=== PATIENT | male | born 1945 | race Caucasian/White ===

== ENCOUNTER 2016-06-04 06:05 | Inpatient (IN) | payer MEDICARE, OTHER ==
--- NOTE | 2016-06-04 06:38 | ER Document Report ---
ED General - General Stated Complaint: DIFFICULTY BREATHING Mode of Arrival: Medic Information source: Patient Notes: 71-year-old male history of hypertension smoker for greater than 50 years presents with complaints of weakness falls shortness breath. Patient notes immediately that his 2 months ago that he is depressed, over the past 3 weeks has not been eating TRAVEL OUTSIDE OF THE [place] IN LAST 30 DAYS: No - HPI Onset: Other Onset/Duration: Persistent Quality of pain: No pain Severity: Moderate Pain Level: Denies Associated symptoms: Shortness of breath, Weakness Exacerbated by: Movement, Walking Relieved by: Denies Similar symptoms previously: No Recently seen / treated by doctor: No - Related Data Allergies/Adverse Reactions: No Known Allergies Allergy (Unverified 06/22/11 10:53) Home Medications: Current Home Medications Amlodipine Besylate [Amlodipine Besylate] 10 mg PO DAILY 06/04/16 [History] Telmisartan/Hydrochlorothiazid [Telmisartan-Hctz 80-25 mg Tab] 1 tab PO DAILY [History] Past Medical History - Social History Smoking Status: Current Every Day Smoker Cigarette use (# per day): Yes Chew tobacco use (# tins/day): No Smoking Education Provided: Yes - Patient counselled regarding cessation for 4 minutes Family History: Reviewed & Not Pertinent - Past Medical History Cardiac Medical History: Reports: Hx Hypertension Denies: Hx Coronary Artery Disease Pulmonary Medical History: Reports: Hx Pneumonia Past Surgical History: Denies: Hx Open Heart Surgery Review of Systems - Review of Systems Notes: REVIEW OF SYSTEMS: CONSTITUTIONAL : Denies fever, chills, or sweats. Denies recent illness. EENT: Denies eye, ear, throat, or mouth pain or symptoms. Denies nasal or sinus congestion or discharge. Denies throat, tongue, or mouth swelling or difficulty swallowing. CARDIOVASCULAR: Denies chest pain. Denies palpitations or racing or irregular heart beat. Denies ankle edema. RESPIRATORY: Shortness breath GASTROINTESTINAL: Denies abdominal pain or distention. Denies nausea, vomiting , or diarrhea. Denies blood in vomitus, stools, or per rectum. Denies black, tarry stools. Denies constipation. GENITOURINARY: Denies difficulty urinating, painful urination, burning, frequency, blood in urine, or discharge. MUSCULOSKELETAL: Denies back or neck pain or stiffness. Denies joint pain or swelling. SKIN: Denies rash, lesions or sores. HEMATOLOGIC : Denies easy bruising or bleeding. LYMPHATIC: Denies swollen, enlarged glands. NEUROLOGICAL: Weakness PSYCHIATRIC: Depression ALL OTHER SYSTEMS REVIEWED AND NEGATIVE. Dictation was performed using [employer] voice recognition software PHYSICAL EXAMINATION: GENERAL: Well-appearing, well-nourished and in no acute distress. HEAD: Atraumatic, normocephalic. EYES: Pupils equal round and reactive to light, extraocular movements intact, sclera anicteric, conjunctiva are normal. ENT: Nares patent, oropharynx clear without exudates. Moist mucous membranes. NECK: Normal range of motion, supple without lymphadenopathy LUNGS: Coarse rhonchi inspiratory and expiratory HEART: Regular rate and rhythm without murmurs ABDOMEN: Soft, nontender, nondistended abdomen. No guarding, no rebound. No masses appreciated. Musculoskeletal: Normal range of motion, no pitting or edema. No cyanosis. NEUROLOGICAL: Cranial nerves grossly intact. Normal speech, normal gait. Normal sensory, motor exams PSYCH: Normal mood, normal affect. SKIN: Warm, Dry, normal turgor, no rashes or lesions noted. Course - Re-evaluation Re-evalutation: 06/04/16 06:38 71-year-old male who presents depressed with complaints of generalized weakness secondary to decreased intake. Lab work pending 06/04/16 08:02 Patient's sodium levels noted to be 107, this would be consistent with his poor oral intake and frequent falls. Given that he is symptomatic hyponatremia I will admit the patient, I did call pharmacy for 3% hypertonic solution and will admit - Laboratory Result Diagrams: 06/04/16 07:00 06/04/16 07:00 Laboratory results interpreted by me: 06/04/16 06/04/16 07:00 07:00 RBC 4.18 L MCHC 36.5 H Sodium 107.7 L* Potassium 3.0 L* Chloride 66 L Total Bilirubin 1.9 H Direct Bilirubin 0.6 H - Diagnostic Test Radiology reviewed: Image reviewed, Reports reviewed Critical Care Note - Critical Care Note Total time excluding time spent on procedures (mins): 34 Comments: 34 minutes of critical care time spent in direct contact evaluating and reevaluating the patient, treating symptoms, reviewing labs and studies and speaking with family and consultants excluding any procedures Discharge - Discharge Clinical Impression: Hyponatremia, Weakness Fall Qualifiers: Encounter type: initial encounter Qualified Code(s): W19.XXXA - Unspecified fall, initial encounter Depression Qualifiers: Depression Type: major depressive disorder Major depression recurrence: single episode Active/Remission status: currently active Major depression episode severity: severe Psychotic features: without psychotic features Qualified Code(s ): F32.2 - Major depressive disorder, single episode, severe without psychotic features Condition: Critical Disposition: ADMITTED INPATIENT Admitting Provider: Hospitalist Unit Admitted: Telemetry
[2016-06-04 07:20] LABS: ABSOLUTE BASOPHILS # (AUTO) 0.1 10^3/uL (0.0-0.2); ABSOLUTE EOSINOPHILS # (AUTO) 0.1 10^3/uL (0.0-0.6); ABSOLUTE LYMPHOCYTES (AUTO) 1.9 10^3/uL (0.5-4.7); ABSOLUTE MONOCYTES (AUTO) 0.4 10^3/uL (0.1-1.4); ABSOLUTE NEUT (AUTO) 3.6 10^3/uL (1.7-8.2); BASOPHILS % (AUTO) 1.3 % (0-2); EOSINOPHILS % (AUTO) 0.9 % (0-6); HEMATOCRIT 37.9 % (37.9-51.0); HEMOGLOBIN 13.9 g/dL (13.5-17.0); HGB HCT DIFFERENCE 3.8; LYMPHOCYTES % (AUTO) 30.7 % (13-45); MEAN CORPUSCULAR HEMOGLOBIN 33.2 pg (27.0-33.4); MEAN CORPUSCULAR HGB CONC 36.5 g/dL (32.0-36.0); MEAN CORPUSCULAR VOLUME 91 fl (80-97); MONOCYTES % (AUTO) 7.1 % (3-13); RED BLOOD COUNT 4.18 10^6/uL (4.35-5.55); RED CELL DISTRIBUTION WIDTH 13.2 % (11.5-14.0); WHITE BLOOD COUNT 6.1 10^3/uL (4.0-10.5)
[2016-06-04 07:38] LABS: ALANINE AMINOTRANSFERASE 30 U/L (21-72); ALBUMIN 4.3 g/dL (3.5-5.0); ALKALINE PHOSPHATASE 82 U/L (38-126); ASPARTATE AMINO TRANSFERASE 28 U/L (17-59); BILIRUBIN,DIRECT 0.6 mg/dL (0.0-0.4); BILIRUBIN,TOTAL 1.9 mg/dL (0.2-1.3); BLOOD UREA NITROGEN 14 mg/dL (7-20); CALCIUM 9.1 mg/dL (8.4-10.2); CARBON DIOXIDE 29 mmol/L (22-30); CHLORIDE 66 mmol/L (98-107); CREATINE KINASE 58 U/L (55-170); CREATININE RESULT 0.54 mg/dL (0.52-1.25); GLUCOSE 101 mg/dL (75-110); TOTAL PROTEIN 6.6 g/dL (6.3-8.2)
[2016-06-04 07:42] LABS: ANION GAP 13 (5-19)
[2016-06-04 07:47] LABS: SODIUM 107.7 mmol/L (137-145)
[2016-06-04 07:49] LABS: CREATINE KINASE MB 0.57 ng/mL (<4.55)
[2016-06-04 07:54] LABS: TROPONIN I < 0.012 ng/mL
[2016-06-04] MEDS ORDERED: SODIUM CHLORIDE 3% 500 ML IV ONE ×2 (08:30→08:33)
[2016-06-04] MEDS ORDERED: ENOXAPARIN SODIUM INJ 40 MG/0.4 ML DISP.SYRIN SUBCUT ONE (09:00)
--- NOTE | 2016-06-04 10:01 | PSYCHOLOGICAL NOTE ---
Psych Note - Psych Note Psych Note: Patient is a 71 year old male who presented this morning to [facility] with complaints of syncopal episodes, and generally not feeling well possibly due to poor oral intake. Patient was noted almost immediately upon arrival to report he was depressed due to his 's passing a few months ago. Patient was referred for psychiatric consultation; however when I attempted to meet with the patient, he states he would prefer to wait to talk until he is moved upstairs. Advised patient that this clinician would see him within the next 24 hours. Patient is reportedly being admitted for hyponatremia. Will track.
[2016-06-04] MEDS: POTASSI CL 20 MEQ/50 ML RIDER 20 MEQ/50 ML RTUPB IV SCH ×2 (10:47→12:33)
[2016-06-04] MEDS: AMLODIPINE BESYLATE 10 MG TABLET PO SCH (12:17)
[2016-06-04] MEDS: ASPIRIN 81 MG TABLET, CHEWABLE PO SCH (12:17)
[2016-06-04 13:53] LABS: APPEARANCE,URINE CLEAR; BILIRUBIN,URINE NEGATIVE (NEGATIVE); GLUCOSE, URINE NEGATIVE (NEGATIVE); KETONES,URINE NEGATIVE (NEGATIVE); LEUKOCYTE ESTERASE,URINE NEGATIVE (NEGATIVE); NITRITE,URINE NEGATIVE (NEGATIVE); PROTEIN,URINE NEGATIVE (NEGATIVE); URINE SPECIFIC GRAVITY 1.009; UROBILINOGEN,URINE NEGATIVE mg/dL (<2.0)
[2016-06-04 15:12] LABS: ANION GAP 11 (5-19); BLOOD UREA NITROGEN 16 mg/dL (7-20); CALCIUM 8.8 mg/dL (8.4-10.2); CARBON DIOXIDE 28 mmol/L (22-30); CHLORIDE 74 mmol/L (98-107); CREATININE RESULT 0.62 mg/dL (0.52-1.25); GLUCOSE 214 mg/dL (75-110); POTASSIUM 3.3 mmol/L (3.6-5.0)
[2016-06-04 15:24] LABS: SODIUM 113.4 mmol/L (137-145)
--- NOTE | 2016-06-04 15:58 | EKG REPORT ---
SEVERITY:- ABNORMAL ECG - SINUS RHYTHM RBBB AND LPFB : Confirmed by: Mary Lopez 04-Jun-2016 15:57:17
--- NOTE | 2016-06-04 17:23 | PDOC H&P ---
History of Present Illness Admission Date/PCP: 06/04/16 08:22 Patient complains of: Hyponatremia with sodium 107. History of Present Illness: STEFF CHOPRA is a 71 year old male who became very weak and is now falling. This has been gradually progressive since his about 2 months ago and he has had very poor oral intake. He feels depressed. Psychiatry service has also been consulted. Evaluation in the emergency department has shown a sodium of 107 and potassium of 3.0. 3% hypertonic saline has been ordered. The patient will be admitted for further management. Past Medical History Cardiac Medical History: Reports: Hypertension Denies: Coronary Artery Disease Pulmonary Medical History: Reports: Pneumonia Hematology: Denies: Anemia, Sickle Cell Disease Social History Smoking Status: Current Every Day Smoker Cigarettes Packs Per Day: 1 Family History Family History: Reviewed & Not Pertinent Parental Family History Reviewed: No Children Family History Reviewed: No Sibling(s) Family History Reviewed.: No Medication/Allergy Home Medications: Aspirin [Aspirin 81 mg Chewable Tablet] 81 mg PO DAILY 06/28/11 Amlodipine Besylate [Amlodipine Besylate] 10 mg PO DAILY 06/04/16 Telmisartan/Hydrochlorothiazid [Telmisartan-Hctz 80-25 mg Tab] 1 tab PO DAILY Allergies/Adverse Reactions: No Known Allergies Allergy (Unverified 06/22/11 10:53) Physical Exam Vital Signs: Temp Pulse Resp BP Pulse Ox 98.1 F 21 H 113/50 L 98 06/04/16 06:06 06/04/16 16:09 06/04/16 16:09 06/04/16 16:09 General appearance: PRESENT: no acute distress, disheveled, other - weak Head exam: PRESENT: atraumatic, normocephalic Eye exam: PRESENT: conjunctiva pink, EOMI, PERRLA. ABSENT: scleral icterus Ear exam: PRESENT: normal external ear exam Mouth exam: PRESENT: dry mucosa Neck exam: ABSENT: carotid bruit, JVD, lymphadenopathy, thyromegaly Respiratory exam: PRESENT: clear to auscultation kirill. ABSENT: rales, rhonchi, wheezes Cardiovascular exam: PRESENT: RRR. ABSENT: diastolic murmur, rubs, systolic murmur Pulses: PRESENT: other - poor peripheral pulses, no cyanosis Vascular exam: PRESENT: normal capillary refill GI/Abdominal exam: PRESENT: normal bowel sounds, soft. ABSENT: distended, guarding, mass, organolmegaly, rebound, tenderness Rectal exam: PRESENT: deferred Extremities exam: PRESENT: full ROM. ABSENT: calf tenderness, clubbing, pedal edema Neurological exam: PRESENT: alert, awake, oriented to person, oriented to place , oriented to time, oriented to situation, CN II-XII grossly intact, other - generalized weakness. ABSENT: motor sensory deficit Psychiatric exam: PRESENT: depressed. ABSENT: homicidal ideation, suicidal ideation Skin exam: PRESENT: dry, intact, warm. ABSENT: cyanosis, rash Results Laboratory Results: 06/04/16 14:20 06/04/16 06/04/16 13:15 14:20 Sodium 113.4 L* Potassium 3.3 L Chloride 74 L Carbon Dioxide 28 Anion Gap 11 BUN 16 Creatinine 0.62 Est GFR ( Amer) > 60 Est GFR (Non-Af Amer) > 60 Glucose 214 H Calcium 8.8 Urine Color YELLOW Urine Appearance CLEAR Urine pH 6.0 Ur Specific [place] 1.009 Urine Protein NEGATIVE Urine Glucose (UA) NEGATIVE Urine Ketones NEGATIVE Urine Blood NEGATIVE Urine Nitrite NEGATIVE Ur Leukocyte Esterase NEGATIVE Urine WBC (Auto) 1 Urine RBC (Auto) 1 Impressions: Chest X-Ray 06/04/16 06:08 IMPRESSION: NO SIGNIFICANT RADIOGRAPHIC FINDING IN THE CHEST. Assessment & Plan - Diagnosis (1) Hyponatremia Is this a current diagnosis for this admission?: YesPlan: The hyponatremia is severe. Initial sodium 107. He has been started on hypertonic saline. We will monitor closely and adjust treatment as needed. (2) Weakness Is this a current diagnosis for this admission?: YesPlan: This is probably multifactorial, mostly related to his extremely low sodium count. Other factors likely include malnutrition deconditioning and depression. (3) Falls Qualifiers: Encounter type: initial encounter Qualified Code(s): W19.XXXA - Unspecified fall, initial encounter Is this a current diagnosis for this admission?: YesPlan: This is likely related to the generalized weakness and hyponatremia. At some point we'll obtain a physical therapy evaluation. (4) Depressed Qualifiers: Depression Type: major depressive disorder Major depression recurrence : single episode Active/Remission status: currently active Major depression episode severity: severe Psychotic features: without psychotic features Qualified Code(s): F32.2 - Major depressive disorder, single episode, severe without psychotic features Is this a current diagnosis for this admission?: YesPlan: The patient readily admits to being depressed since his 's 2 months ago. The psychiatry service has been consulted. (5) HTN (hypertension) Qualifiers: Hypertension type: essential hypertension Qualified Code(s): I10 - Essential (primary) hypertension Is this a current diagnosis for this admission?: YesPlan: Will monitor and treat as needed. His home medications are on record. - Time Time Spent: 50 to 70 Minutes
[2016-06-04 20:04] LABS: ANION GAP 13 (5-19); BLOOD UREA NITROGEN 19 mg/dL (7-20); CALCIUM 9.2 mg/dL (8.4-10.2); CARBON DIOXIDE 27 mmol/L (22-30); CHLORIDE 75 mmol/L (98-107); GLUCOSE 205 mg/dL (75-110); POTASSIUM 3.4 mmol/L (3.6-5.0)
[2016-06-04 20:09] LABS: SODIUM 114.9 mmol/L (137-145)
[2016-06-04 20:54] LABS: ADD ON TESTING BLD IN LAB ACKNOWLEDGE
[2016-06-04 21:12] LABS: MAGNESIUM 1.7 mg/dL (1.6-2.3)
[2016-06-04] MEDS ORDERED: POTASSIUM CHLORIDE 20 MEQ/15 ML UDCUP PO ONE (22:00)
[2016-06-04 23:17] LABS: ANION GAP 9 (5-19); BLOOD UREA NITROGEN 17 mg/dL (7-20); CALCIUM 9.5 mg/dL (8.4-10.2); CARBON DIOXIDE 32 mmol/L (22-30); CHLORIDE 76 mmol/L (98-107); CREATININE RESULT 0.63 mg/dL (0.52-1.25); GLUCOSE 160 mg/dL (75-110); POTASSIUM 3.2 mmol/L (3.6-5.0)
[2016-06-04 23:27] LABS: SODIUM 116.5 mmol/L (137-145)
[2016-06-05] MEDS ORDERED: WATER IV SCH ×2 (00:10→02:30)
[2016-06-05] MEDS ORDERED: DEXTROSE 5% IV SCH ×2 (00:10→02:30)
[2016-06-05] MEDS ORDERED: POTASSIUM CHLORIDE 20 MEQ/15 ML UDCUP PO ONE ×2 (00:15→02:30)
[2016-06-05] MEDS ORDERED: ENOXAPARIN SODIUM INJ 40 MG/0.4 ML DISP.SYRIN SUBCUT ONE (00:30)
[2016-06-05] MEDS ORDERED: DESMOPRESSIN ACETATE INJ 4 MCG/1 ML AMPULE ONE (00:45)
[2016-06-05 01:50] LABS: ANION GAP 10 (5-19); BLOOD UREA NITROGEN 16 mg/dL (7-20); CALCIUM 8.9 mg/dL (8.4-10.2); CARBON DIOXIDE 28 mmol/L (22-30); CHLORIDE 80 mmol/L (98-107); CREATININE RESULT 0.56 mg/dL (0.52-1.25); GLUCOSE 219 mg/dL (75-110); POTASSIUM 3.8 mmol/L (3.6-5.0)
[2016-06-05 02:09] LABS: SODIUM 118.3 mmol/L (137-145)
[2016-06-05] MEDS ORDERED: DESMOPRESSIN ACETATE INJ 4 MCG/1 ML AMPULE SUBCUT ONE (02:30)
[2016-06-05] MEDS ORDERED: PHARMACY COMMUNICATION ORDER MC NR (02:30)
[2016-06-05 05:22] LABS: ABSOLUTE LYMPHOCYTES (AUTO) 1.1 10^3/uL (0.5-4.7); ABSOLUTE MONOCYTES (AUTO) 0.9 10^3/uL (0.1-1.4); BASOPHILS % (AUTO) 0.4 % (0-2); EOSINOPHILS % (AUTO) 0.1 % (0-6); HEMATOCRIT 35.8 % (37.9-51.0); HGB HCT DIFFERENCE 3.2; LYMPHOCYTES % (AUTO) 11.4 % (13-45); MEAN CORPUSCULAR HEMOGLOBIN 33.3 pg (27.0-33.4); MEAN CORPUSCULAR HGB CONC 36.4 g/dL (32.0-36.0); MEAN CORPUSCULAR VOLUME 92 fl (80-97); MONOCYTES % (AUTO) 9.2 % (3-13); RED BLOOD COUNT 3.91 10^6/uL (4.35-5.55); RED CELL DISTRIBUTION WIDTH 13.4 % (11.5-14.0); SEGMENTED NEUTROPHILS % (AUTO) 78.9 % (42-78); WHITE BLOOD COUNT 10.1 10^3/uL (4.0-10.5)
[2016-06-05 05:27] LABS: ANION GAP 7 (5-19); BLOOD UREA NITROGEN 15 mg/dL (7-20); CALCIUM 9.4 mg/dL (8.4-10.2); CARBON DIOXIDE 30 mmol/L (22-30); CHLORIDE 81 mmol/L (98-107); GLUCOSE 152 mg/dL (75-110)
[2016-06-05 05:42] LABS: SODIUM 117.5 mmol/L (137-145)
[2016-06-05] MEDS ORDERED: WATER IV PRN (05:49)
[2016-06-05] MEDS ORDERED: DEXTROSE 5% IV PRN (05:49)
[2016-06-05] MEDS ORDERED: ENOXAPARIN SODIUM INJ 40 MG/0.4 ML DISP.SYRIN SUBCUT SCH ×2 (08:00→22:00)
[2016-06-05] MEDS ORDERED: DESMOPRESSIN ACETATE INJ 4 MCG/1 ML AMPULE SUBCUT SCH (08:30)
[2016-06-05 09:01] LABS: BLOOD UREA NITROGEN 13 mg/dL (7-20); CALCIUM 8.9 mg/dL (8.4-10.2); CARBON DIOXIDE 32 mmol/L (22-30); CHLORIDE 78 mmol/L (98-107); CREATININE RESULT 0.51 mg/dL (0.52-1.25); GLUCOSE 127 mg/dL (75-110); POTASSIUM 3.5 mmol/L (3.6-5.0)
[2016-06-05 09:04] LABS: ANION GAP 8 (5-19)
[2016-06-05 09:23] LABS: SODIUM 117.7 mmol/L (137-145)
[2016-06-05] MEDS: ASPIRIN 81 MG TABLET, CHEWABLE PO SCH (09:30)
[2016-06-05] MEDS: AMLODIPINE BESYLATE 10 MG TABLET PO SCH (09:31)
--- NOTE | 2016-06-05 10:56 | PDOC PROGRESS REPORT ---
Subjective Progress Note for:: 06/05/16 Subjective:: Patient denies any complaints. Physical Exam Vital Signs: Temp Pulse Resp BP Pulse Ox 97.4 F 64 19 121/56 L 94 06/05/16 07:33 06/05/16 07:33 06/05/16 07:33 06/05/16 07:33 06/05/16 07:33 Intake & Output 06/04/16 06/05/16 06/06/16 06:59 06:59 06:59 Intake Total 1622 Balance 1622 Weight 63.4 kg General appearance: PRESENT: no acute distress Eye exam: PRESENT: conjunctiva pink. ABSENT: scleral icterus Mouth exam: PRESENT: moist, tongue midline Neck exam: ABSENT: JVD Respiratory exam: PRESENT: clear to auscultation kirill. ABSENT: rales, rhonchi, wheezes Cardiovascular exam: PRESENT: RRR. ABSENT: diastolic murmur, rubs, systolic murmur GI/Abdominal exam: PRESENT: normal bowel sounds, soft. ABSENT: distended, guarding, mass, organolmegaly, rebound, tenderness Extremities exam: ABSENT: calf tenderness, clubbing, pedal edema Neurological exam: PRESENT: alert, awake, oriented to person, oriented to place , oriented to time, oriented to situation, CN II-XII grossly intact. ABSENT: motor sensory deficit Psychiatric exam: PRESENT: flat affect Skin exam: PRESENT: dry, intact, warm. ABSENT: cyanosis, rash Results Laboratory Results: 06/05/16 04:26 06/05/16 08:36 06/04/16 06/04/16 06/04/16 13:15 14:20 19:23 WBC RBC Hgb Hct MCV MCH MCHC RDW Plt Count Seg Neutrophils % Lymphocytes % Monocytes % Eosinophils % Basophils % Absolute Neutrophils Absolute Lymphocytes Absolute Monocytes Absolute Eosinophils Absolute Basophils Sodium 113.4 L* 114.9 L* Potassium 3.3 L 3.4 L Chloride 74 L 75 L Carbon Dioxide 28 27 Anion Gap 11 13 BUN 16 19 Creatinine 0.62 0.60 Est GFR ( Amer) > 60 > 60 Est GFR (Non-Af Amer) > 60 > 60 Glucose 214 H 205 H Calcium 8.8 9.2 Magnesium Urine Color YELLOW Urine Appearance CLEAR Urine pH 6.0 Ur Specific [place] 1.009 Urine Protein NEGATIVE Urine Glucose (UA) NEGATIVE Urine Ketones NEGATIVE Urine Blood NEGATIVE Urine Nitrite NEGATIVE Ur Leukocyte Esterase NEGATIVE Urine WBC (Auto) 1 Urine RBC (Auto) 1 06/04/16 06/04/16 06/05/16 19:23 22:20 01:20 WBC RBC Hgb Hct MCV MCH MCHC RDW Plt Count Seg Neutrophils % Lymphocytes % Monocytes % Eosinophils % Basophils % Absolute Neutrophils Absolute Lymphocytes Absolute Monocytes Absolute Eosinophils Absolute Basophils Sodium 116.5 L* 118.3 L* Potassium 3.2 L 3.8 Chloride 76 L 80 L Carbon Dioxide 32 H 28 Anion Gap 9 10 BUN 17 16 Creatinine 0.63 0.56 Est GFR ( Amer) > 60 > 60 Est GFR (Non-Af Amer) > 60 > 60 Glucose 160 H 219 H Calcium 9.5 8.9 Magnesium 1.7 Urine Color Urine Appearance Urine pH Ur Specific [place] Urine Protein Urine Glucose (UA) Urine Ketones Urine Blood Urine Nitrite Ur Leukocyte Esterase Urine WBC (Auto) Urine RBC (Auto) 06/05/16 06/05/16 06/05/16 04:26 04:26 08:36 WBC 10.1 RBC 3.91 L Hgb 13.0 L Hct 35.8 L MCV 92 MCH 33.3 MCHC 36.4 H RDW 13.4 Plt Count 157 Seg Neutrophils % 78.9 H Lymphocytes % 11.4 L Monocytes % 9.2 Eosinophils % 0.1 Basophils % 0.4 Absolute Neutrophils 8.0 Absolute Lymphocytes 1.1 Absolute Monocytes 0.9 Absolute Eosinophils 0.0 Absolute Basophils 0.0 Sodium 117.5 L* 117.7 L* Potassium 4.0 3.5 L Chloride 81 L 78 L Carbon Dioxide 30 32 H Anion Gap 7 8 BUN 15 13 Creatinine 0.50 L 0.51 L Est GFR ( Amer) > 60 > 60 Est GFR (Non-Af Amer) > 60 > 60 Glucose 152 H 127 H Calcium 9.4 8.9 Magnesium Urine Color Urine Appearance Urine pH Ur Specific [place] Urine Protein Urine Glucose (UA) Urine Ketones Urine Blood Urine Nitrite Ur Leukocyte Esterase Urine WBC (Auto) Urine RBC (Auto) Impressions: Chest X-Ray 06/04/16 06:08 IMPRESSION: NO SIGNIFICANT RADIOGRAPHIC FINDING IN THE CHEST. Assessment & Plan - Diagnosis (1) Hyponatremia Is this a current diagnosis for this admission?: YesPlan: The patient's hyponatremia has improved. We will DC the DDAVP and give IV fluids as he does appear to be somewhat volume depleted still. (2) Depressed Qualifiers: Depression Type: major depressive disorder Major depression recurrence : single episode Active/Remission status: currently active Major depression episode severity: severe Psychotic features: without psychotic features Qualified Code(s): F32.2 - Major depressive disorder, single episode, severe without psychotic features Is this a current diagnosis for this admission?: YesPlan: Patient is to see psychiatry. He is depressed because his 2 months ago. We will start him on Celexa. (3) HTN (hypertension) Qualifiers: Hypertension type: essential hypertension Qualified Code(s): I10 - Essential (primary) hypertension Is this a current diagnosis for this admission?: YesPlan: Blood pressure is controlled with Norvasc. - Time Time Spent with patient: 25-34 minutes - Inpatient Certification Medical Necessity: Need For IV Fluids
[2016-06-05] MEDS: ALBUTEROL SULFATE 0.083% NEB 2.5 MG/3 ML AMPUL NEB PRN (14:11)
--- NOTE | 2016-06-05 18:08 | PSYCHOLOGICAL NOTE ---
Psych Note - Psych Note Psych Note: Attempted again to consult patient who is a 71-year-old male admitted to [facility]. Patient was seen in the emergency room yesterday after the emergency room physician was concerned for possible depression when the patient' s immediately mentioned the of his 2 months ago. Patient stated yesterday he preferred to wait to talk until he got settled into his room on the floor. Attempted to speak with patient again today; however, he was not willing to do so and stated he did not think it was necessary. Patient stated he is feeling better. Advised patient that he is voluntary and not under an involuntary commitment and is able to refuse to consult. Please reconsult this department should the patient change his mind; however, 2 attempts were made unsuccessfully at evaluating this patient. I consulted with Dr. Burch in regards to the care and management of this patient. He for this consult.
[2016-06-05] MEDS: ENOXAPARIN SODIUM INJ 40 MG/0.4 ML DISP.SYRIN SUBCUT SCH (21:51)
[2016-06-05] MEDS: CITALOPRAM HYDROBROMIDE 20 MG TABLET PO SCH (21:52)
[2016-06-06] MEDS: NORMAL SALINE 1000 ML 1,000 ML IV PRN (01:27)
[2016-06-06] MEDS: ALBUTEROL SULFATE 0.083% NEB 2.5 MG/3 ML AMPUL NEB PRN (05:12)
[2016-06-06 05:13] LABS: ABSOLUTE MONOCYTES (AUTO) 0.6 10^3/uL (0.1-1.4); BASOPHILS % (AUTO) 0.3 % (0-2); EOSINOPHILS % (AUTO) 0.5 % (0-6); HEMATOCRIT 35.5 % (37.9-51.0); HEMOGLOBIN 12.7 g/dL (13.5-17.0); HGB HCT DIFFERENCE 2.6; LYMPHOCYTES % (AUTO) 23.1 % (13-45); MEAN CORPUSCULAR HEMOGLOBIN 33.2 pg (27.0-33.4); MEAN CORPUSCULAR HGB CONC 35.6 g/dL (32.0-36.0); MEAN CORPUSCULAR VOLUME 93 fl (80-97); MONOCYTES % (AUTO) 7.3 % (3-13); RED BLOOD COUNT 3.81 10^6/uL (4.35-5.55); RED CELL DISTRIBUTION WIDTH 13.3 % (11.5-14.0); SEGMENTED NEUTROPHILS % (AUTO) 68.8 % (42-78); WHITE BLOOD COUNT 8.7 10^3/uL (4.0-10.5)
[2016-06-06 05:40] LABS: ANION GAP 5 (5-19); BLOOD UREA NITROGEN 10 mg/dL (7-20); CALCIUM 8.6 mg/dL (8.4-10.2); CARBON DIOXIDE 28 mmol/L (22-30); CHLORIDE 87 mmol/L (98-107); CREATININE RESULT 0.49 mg/dL (0.52-1.25); GLUCOSE 91 mg/dL (75-110); POTASSIUM 3.8 mmol/L (3.6-5.0)
[2016-06-06 06:19] LABS: SODIUM 120.2 mmol/L (137-145)
[2016-06-06] MEDS: AMLODIPINE BESYLATE 10 MG TABLET PO SCH (09:36)
[2016-06-06] MEDS: ASPIRIN 81 MG TABLET, CHEWABLE PO SCH (09:37)
--- NOTE | 2016-06-06 10:37 | PDOC PROGRESS REPORT ---
Subjective Progress Note for:: 06/06/16 Subjective:: Patient denies any complaints. Physical Exam Vital Signs: Temp Pulse Resp BP Pulse Ox 97.7 F 56 L 16 128/56 H 98 06/06/16 07:21 06/06/16 07:21 06/06/16 07:21 06/06/16 07:21 06/06/16 07:21 Intake & Output 06/05/16 06/06/16 06/07/16 06:59 06:59 06:59 Intake Total 1622 3850 Balance 1622 3850 Weight 63.4 kg 65.6 kg General appearance: PRESENT: no acute distress Eye exam: PRESENT: conjunctiva pink. ABSENT: scleral icterus Mouth exam: PRESENT: moist, tongue midline Neck exam: ABSENT: JVD Respiratory exam: PRESENT: clear to auscultation kirill. ABSENT: rales, rhonchi, wheezes Cardiovascular exam: PRESENT: RRR. ABSENT: diastolic murmur, rubs, systolic murmur GI/Abdominal exam: PRESENT: normal bowel sounds, soft. ABSENT: distended, guarding, mass, organolmegaly, rebound, tenderness Extremities exam: ABSENT: calf tenderness, clubbing, pedal edema Neurological exam: PRESENT: alert, awake, oriented to person, oriented to place , oriented to time, oriented to situation, CN II-XII grossly intact. ABSENT: motor sensory deficit Psychiatric exam: PRESENT: appropriate affect Skin exam: PRESENT: dry, intact, warm. ABSENT: cyanosis, rash Results Laboratory Results: 06/06/16 03:55 06/06/16 03:55 06/06/16 06/06/16 03:55 03:55 WBC 8.7 RBC 3.81 L Hgb 12.7 L Hct 35.5 L MCV 93 MCH 33.2 MCHC 35.6 RDW 13.3 Plt Count 153 Seg Neutrophils % 68.8 Lymphocytes % 23.1 Monocytes % 7.3 Eosinophils % 0.5 Basophils % 0.3 Absolute Neutrophils 6.0 Absolute Lymphocytes 2.0 Absolute Monocytes 0.6 Absolute Eosinophils 0.0 Absolute Basophils 0.0 Sodium 120.2 L* Potassium 3.8 Chloride 87 L Carbon Dioxide 28 Anion Gap 5 BUN 10 Creatinine 0.49 L Est GFR ( Amer) > 60 Est GFR (Non-Af Amer) > 60 Glucose 91 Calcium 8.6 Impressions: Chest X-Ray 06/04/16 06:08 IMPRESSION: NO SIGNIFICANT RADIOGRAPHIC FINDING IN THE CHEST. Assessment & Plan - Diagnosis (1) Hyponatremia Is this a current diagnosis for this admission?: YesPlan: The patient's hyponatremia continues to improved. We'll continue with the IV fluids. Patient states that he has to leave the hospital tomorrow and as long as his sodium continues to improve we will plan on discharging home tomorrow. (2) Depressed Qualifiers: Depression Type: major depressive disorder Major depression recurrence : single episode Active/Remission status: currently active Major depression episode severity: severe Psychotic features: without psychotic features Qualified Code(s): F32.2 - Major depressive disorder, single episode, severe without psychotic features Is this a current diagnosis for this admission?: YesPlan: Patient refused to see psychiatry. Patient does not have any suicidal ideations. Was started on Celexa yesterday. (3) HTN (hypertension) Qualifiers: Hypertension type: essential hypertension Qualified Code(s): I10 - Essential (primary) hypertension Is this a current diagnosis for this admission?: YesPlan: Blood pressure is controlled with Norvasc. - Time Time Spent with patient: 25-34 minutes - Inpatient Certification Medical Necessity: Need Close Monitoring Due to Risk of Patient Decompensation, Need For IV Fluids - Plan Summary Plan Summary: If his sodium continues to improve we will discharge home tomorrow.
[2016-06-06] MEDS: CITALOPRAM HYDROBROMIDE 20 MG TABLET PO SCH (21:08)
[2016-06-06] MEDS: ENOXAPARIN SODIUM INJ 40 MG/0.4 ML DISP.SYRIN SUBCUT SCH (21:08)
[2016-06-07] MEDS: NORMAL SALINE 1000 ML 1,000 ML IV PRN (00:57)
[2016-06-07 05:03] LABS: ABSOLUTE EOSINOPHILS # (AUTO) 0.1 10^3/uL (0.0-0.6); ABSOLUTE LYMPHOCYTES (AUTO) 2.1 10^3/uL (0.5-4.7); ABSOLUTE MONOCYTES (AUTO) 0.7 10^3/uL (0.1-1.4); ABSOLUTE NEUT (AUTO) 5.4 10^3/uL (1.7-8.2); BASOPHILS % (AUTO) 0.5 % (0-2); EOSINOPHILS % (AUTO) 0.9 % (0-6); HEMATOCRIT 37.8 % (37.9-51.0); HEMOGLOBIN 13.2 g/dL (13.5-17.0); HGB HCT DIFFERENCE 1.8; MEAN CORPUSCULAR VOLUME 94 fl (80-97); MONOCYTES % (AUTO) 7.9 % (3-13); RED BLOOD COUNT 4.01 10^6/uL (4.35-5.55); RED CELL DISTRIBUTION WIDTH 13.6 % (11.5-14.0); SEGMENTED NEUTROPHILS % (AUTO) 65.7 % (42-78); WHITE BLOOD COUNT 8.3 10^3/uL (4.0-10.5)
[2016-06-07 05:31] LABS: ANION GAP 7 (5-19); BLOOD UREA NITROGEN 7 mg/dL (7-20); CALCIUM 8.9 mg/dL (8.4-10.2); CARBON DIOXIDE 28 mmol/L (22-30); CHLORIDE 93 mmol/L (98-107); CREATININE RESULT 0.52 mg/dL (0.52-1.25); GLUCOSE 88 mg/dL (75-110); POTASSIUM 4.5 mmol/L (3.6-5.0); SODIUM 127.8 mmol/L (137-145)
[2016-06-07 09:11] VITALS: BP 115/49
[2016-06-07] MEDS: ASPIRIN 81 MG TABLET, CHEWABLE PO SCH (09:16)
[2016-06-07] MEDS: AMLODIPINE BESYLATE 10 MG TABLET PO SCH (09:16)
--- NOTE | 2016-06-07 10:57 | PDOC DISCHARGE SUMMARY ---
General - Admit/Disc Date/PCP Admission Date/Primary Care Provider: 06/04/16 08:22 Discharge Date: 06/07/16 - Discharge Diagnosis (1) Hyponatremia Is this a current diagnosis for this admission?: YesSummary: Secondary to decreased by mouth intake. (2) Depressed Is this a current diagnosis for this admission?: YesSummary: Secondary to the of his 2 months ago. (3) HTN (hypertension) Is this a current diagnosis for this admission?: YesSummary: His telmisartan/HCTZ has been stopped. - Additional Information Resuscitation Status: Full Code Discharge Diet: Cardiac Discharge Activity: Activity As Tolerated Home Medications: Aspirin [Aspirin 81 mg Chewable Tablet] 81 mg PO DAILY 06/28/11 Amlodipine Besylate 10 mg PO DAILY 06/04/16 Citalopram Hydrobromide [Celexa 20 mg Tablet] 20 mg PO QHS #30 tablet 06/07/16 History of Present Illness History of Present Illness: STEFF CHOPRA is a 71 year old male who presents with weakness and difficulty walking. This has been progressive over the last 2 months since that his has . He is a very poor oral intake and has been depressed. Patient was noted have a sodium of 107 with a potassium of 3.0. For further workup. Hospital Course Hospital Course: 71-year-old male who has suffered from the of his 2 months ago and since that time has had decreased by mouth intake. The patient presented with weakness and trouble walking with frequent falls. When he presented emergently is found to have a sodium of 107. The patient's hyponatremia was felt to most likely be from decreased by mouth intake. The patient was initially given hypertonic saline and then started on DDAVP. These were stopped and he was put on normal saline and had improvement in his sodium and on the day of discharge his sodium was up to 127. He was alert and oriented with no weakness. The patient had a psychiatry consult ordered however the patient refused to talk to the psychiatrist. He denies any suicidal or homicidal ideations. He was started on Celexa empirically and it was felt that he was stable for discharge to home. I reassured the patient that he'll need to take an antidepressant for the next 6 months minimum. Physical Exam Vital Signs: Temp Pulse Resp BP Pulse Ox 98.0 F 70 18 115/49 L 98 03/30/17 09:09 06/07/16 09:09 06/07/16 09:09 06/07/16 09:09 06/07/16 09:09 Intake & Output 06/06/16 06/07/16 06/08/16 06:59 06:59 06:59 Intake Total 3850 3662 Balance 3850 3662 Weight 65.6 kg 64 kg General appearance: PRESENT: no acute distress Eye exam: PRESENT: conjunctiva pink. ABSENT: scleral icterus Mouth exam: PRESENT: moist, tongue midline Neck exam: ABSENT: JVD Respiratory exam: PRESENT: clear to auscultation kirill. ABSENT: rales, rhonchi, wheezes Cardiovascular exam: PRESENT: RRR. ABSENT: diastolic murmur, rubs, systolic murmur GI/Abdominal exam: PRESENT: normal bowel sounds, soft. ABSENT: distended, guarding, mass, organolmegaly, rebound, tenderness Extremities exam: ABSENT: calf tenderness, clubbing, pedal edema Neurological exam: PRESENT: alert, awake, oriented to person, oriented to place , oriented to time, oriented to situation, CN II-XII grossly intact. ABSENT: motor sensory deficit Psychiatric exam: PRESENT: appropriate affect Skin exam: PRESENT: dry, intact, warm. ABSENT: cyanosis, rash Results Laboratory Results: 06/07/16 04:34 06/07/16 04:34 06/07/16 06/07/16 04:34 04:34 WBC 8.3 RBC 4.01 L Hgb 13.2 L Hct 37.8 L MCV 94 MCH 33.0 MCHC 35.0 RDW 13.6 Plt Count 160 Seg Neutrophils % 65.7 Lymphocytes % 25.0 Monocytes % 7.9 Eosinophils % 0.9 Basophils % 0.5 Absolute Neutrophils 5.4 Absolute Lymphocytes 2.1 Absolute Monocytes 0.7 Absolute Eosinophils 0.1 Absolute Basophils 0.0 Sodium 127.8 L Potassium 4.5 Chloride 93 L Carbon Dioxide 28 Anion Gap 7 BUN 7 Creatinine 0.52 Est GFR ( Amer) > 60 Est GFR (Non-Af Amer) > 60 Glucose 88 Calcium 8.9 Impressions: Chest X-Ray 06/04/16 06:08 IMPRESSION: NO SIGNIFICANT RADIOGRAPHIC FINDING IN THE CHEST. Qualifiers PATEINT BEING DISCHARGED WITH ANY OF THE FOLLOWING DIAGNOSIS?: No Plan Discharge Plan: He is discharged home and will follow-up with his primary care in 2 weeks. Time Spent: Greater than 30 Minutes
== END 2016-06-07 09:28 | disposition home or self-care (01) | DRG 641 ==
LOC: ER 06:05 → EH 08:22 → 3N 22:15
PROC: 3E0F73Z Introduction of Anti-inflammatory into Respiratory Tract, Via Natural or Artificial Opening (ICD-10-PCS; principal; 2016-06-05)
DX: E87.1 Hypo-osmolality and hyponatremia (principal); F32.2 Major depressive disorder, single episode, severe without psychotic features; E87.6 Hypokalemia; I10 Essential (primary) hypertension; W19.XXXA Unspecified fall, initial encounter; F17.210 Nicotine dependence, cigarettes, uncomplicated; Z91.81 History of falling; Z79.899 Other long term (current) drug therapy
CPT/HCPCS: 36415; 71010; 80048; 80053; 81001; 82550; 82553; 83735; 83880; 84484; 85025; 87040; 93005; 93010; 94640; 99291; J1650; J2597; J3480; J3490; J7030; J7060

== ENCOUNTER 2016-08-12 11:13 | Emergency (ER) | payer MEDICARE, OTHER ==
--- NOTE | 2016-08-12 11:29 | ER Document Report ---
ED Medical Screen (RME) - General Chief Complaint: Weakness Stated Complaint: WEAKNESS Time Seen by Provider: 08/12/16 11:23 Mode of Arrival: Medic Information source: Patient TRAVEL OUTSIDE OF THE [place] IN LAST 30 DAYS: No - HPI Patient complains to provider of: weakness Onset: Other - pt. with c/o weakness and anorexia for the past 2 days. - Related Data Allergies/Adverse Reactions: No Known Allergies Allergy (Verified 08/12/16 11:18) Past Medical History - Past Medical History Cardiac Medical History: Reports: Hx Hypertension Denies: Hx Coronary Artery Disease Pulmonary Medical History: Reports: Hx Pneumonia Renal/ Medical History: Denies: Hx Peritoneal Dialysis Psychiatric Medical History: Reports: Hx Depression - recently Past Surgical History: Denies: Hx Open Heart Surgery Physical Exam - Vital signs Vitals: Temp Pulse Resp BP Pulse Ox 98.1 F 98 24 H 170/101 H 94 08/12/16 11:20 08/12/16 11:20 08/12/16 11:20 08/12/16 11:20 08/12/16 11:20 Course - Vital Signs Vital signs: Temp Pulse Resp BP Pulse Ox 98.1 F 98 24 H 170/101 H 94 08/12/16 11:20 08/12/16 11:20 08/12/16 11:20 08/12/16 11:20 08/12/16 11:20
[2016-08-12 12:30] LABS: ABSOLUTE BASOPHILS # (AUTO) 0.1 10^3/uL (0.0-0.2); ABSOLUTE MONOCYTES (AUTO) 0.4 10^3/uL (0.1-1.4); APPEARANCE,URINE CLEAR; BASOPHILS % (AUTO) 1.1 % (0-2); BILIRUBIN,URINE NEGATIVE (NEGATIVE); EOSINOPHILS % (AUTO) 0.1 % (0-6); GLUCOSE, URINE NEGATIVE (NEGATIVE); HEMATOCRIT 45.9 % (37.9-51.0); HEMOGLOBIN 15.5 g/dL (13.5-17.0); HGB HCT DIFFERENCE 0.6; KETONES,URINE 20 mg/dL (NEGATIVE); LEUKOCYTE ESTERASE,URINE NEGATIVE (NEGATIVE); LYMPHOCYTES % (AUTO) 18.6 % (13-45); MEAN CORPUSCULAR HGB CONC 33.8 g/dL (32.0-36.0); MEAN CORPUSCULAR VOLUME 101 fl (80-97); MONOCYTES % (AUTO) 7.9 % (3-13); NITRITE,URINE NEGATIVE (NEGATIVE); PROTEIN,URINE NEGATIVE (NEGATIVE); RED BLOOD COUNT 4.55 10^6/uL (4.35-5.55); RED CELL DISTRIBUTION WIDTH 16.2 % (11.5-14.0); SEGMENTED NEUTROPHILS % (AUTO) 72.3 % (42-78); URINE SPECIFIC GRAVITY 1.014; WHITE BLOOD COUNT 5.6 10^3/uL (4.0-10.5)
[2016-08-12 12:50] LABS: ALANINE AMINOTRANSFERASE 115 U/L (21-72); ALBUMIN 4.3 g/dL (3.5-5.0); ALKALINE PHOSPHATASE 125 U/L (38-126); ASPARTATE AMINO TRANSFERASE 95 U/L (17-59); BILIRUBIN,DIRECT 0.9 mg/dL (0.0-0.4); BLOOD UREA NITROGEN 10 mg/dL (7-20); CHLORIDE 91 mmol/L (98-107); CREATINE KINASE 35 U/L (55-170); CREATININE RESULT 0.65 mg/dL (0.52-1.25); GLUCOSE 79 mg/dL (75-110); TOTAL PROTEIN 7.4 g/dL (6.3-8.2)
--- NOTE | 2016-08-12 12:53 | RADIOLOGY REPORT (SQ) ---
EXAM DESCRIPTION: CHEST PA/LAT COMPLETED DATE/TIME: 08/12/2016 12:35 pm REASON FOR STUDY: weakness COMPARISON: 02/16/2015 EXAM PARAMETERS: NUMBER OF VIEWS: two views TECHNIQUE: Digital Frontal and Lateral radiographic views of the chest acquired. RADIATION DOSE: NA LIMITATIONS: none FINDINGS: LUNGS AND PLEURA: No opacities, masses or pneumothorax. No pleural effusion. MEDIASTINUM AND HILAR STRUCTURES: No masses or contour abnormalities. HEART AND VASCULAR STRUCTURES: Heart normal size. No evidence for failure. BONES: Acute or subacute left lateral 5th 6th and 7th rib fractures. Old anterior left 5th 6th and 7 th healed rib fractures. HARDWARE: None in the chest. OTHER: No other significant finding. IMPRESSION: Acute or subacute left lateral 5th 6th and 7th rib fractures. No pleural effusion or pn eumothorax. TECHNICAL DOCUMENTATION: JOB ID: [id number] [employer]- All Rights Reserved
[2016-08-12 13:00] LABS: CARBON DIOXIDE 27 mmol/L (22-30); POTASSIUM 3.3 mmol/L (3.6-5.0); SODIUM 138.4 mmol/L (137-145)
[2016-08-12 13:01] LABS: CREATINE KINASE MB 0.63 ng/mL (<4.55); TROPONIN I 0.012 ng/mL
[2016-08-12 13:03] LABS: ANION GAP 20 (5-19)
--- NOTE | 2016-08-12 13:26 | EKG REPORT ---
SEVERITY:- ABNORMAL ECG - SINUS RHYTHM MULTIPLE ATRIAL PREMATURE COMPLEXES RIGHT BUNDLE BRANCH BLOCK SECONDARY ST-T CHANGES : Confirmed by: Mary Lopez 12-Aug-2016 13:25:41
[2016-08-12] MEDS ORDERED: POTASSIUM CHLORIDE 10 MEQ TABLET.SA PO ONE (13:51)
--- NOTE | 2016-08-12 14:47 | RADIOLOGY REPORT (SQ) ---
EXAM DESCRIPTION: U/S ABDOMEN LTD W/DOPPLER COMPLETED DATE/TIME: 08/12/2016 2:21 pm REASON FOR STUDY: ruq US elevated lfts hx etoh COMPARISON: None. TECHNIQUE: Dynamic and static grayscale images acquired of the abdomen and recorded on PACS. Additio nal selected color Doppler and spectral images recorded. LIMITATIONS: Midline bowel gas FINDINGS: PANCREAS: Midline pancreas unremarkable LIVER: No masses. Echotexture normal. LIVER VASCULATURE: Normal directional flow of the main portal vein and hepatic veins. GALLBLADDER: No stones. Normal wall thickness. No pericholecystic fluid. ULTRASOUND-DETECTED STILES'S SIGN: Negative. INTRAHEPATIC DUCTS AND COMMON DUCT: CBD and intrahepatic ducts normal caliber. No filling defects. INFERIOR VENA CAVA: Normal flow. AORTA: Not well seen RIGHT KIDNEY: Normal size. Normal echogenicity. No solid or suspicious masses. No hydronephrosis. No calcifications. PERITONEAL AND RIGHT PLEURAL SPACE: No ascites or effusions. OTHER: No other significant findings. IMPRESSION: NORMAL RIGHT UPPER QUADRANT ULTRASOUND. TECHNICAL DOCUMENTATION: JOB ID: [id number] [email or web address]- All Rights Reserved
--- NOTE | 2016-08-12 15:36 | ER Document Report ---
ED General - General Chief Complaint: Weakness Stated Complaint: WEAKNESS Time Seen by Provider: 08/12/16 11:23 Mode of Arrival: Medic TRAVEL OUTSIDE OF THE [place] IN LAST 30 DAYS: No - HPI Patient complains to provider of: Generalized weakness decreased appetite Notes: Coming in today for evaluation of generalized weakness decreased appetite. Patient states started last few days felt like not eating anything. Patient states he does drink alcohol however does not drink. Drinks a night prior to arrival. Patient otherwise denies any pain denies fever chills nausea vomiting diarrhea. - Related Data Allergies/Adverse Reactions: No Known Allergies Allergy (Verified 08/12/16 11:18) Past Medical History - General Information source: Patient - Social History Smoking Status: Current Every Day Smoker Chew tobacco use (# tins/day): No Frequency of alcohol use: 8+ oz volka daily Drug Abuse: None Family History: Reviewed & Not Pertinent Patient has suicidal ideation: No Patient has homicidal ideation: No - Past Medical History Cardiac Medical History: Reports: Hx Hypertension Denies: Hx Coronary Artery Disease Pulmonary Medical History: Reports: Hx Pneumonia Renal/ Medical History: Denies: Hx Peritoneal Dialysis Psychiatric Medical History: Reports: Hx Depression - recently Past Surgical History: Denies: Hx Open Heart Surgery - Immunizations Hx Pneumococcal Vaccination: 12/10/15 Review of Systems - Review of Systems Constitutional: Weakness, Other - Appetite EENT: No symptoms reported Cardiovascular: No symptoms reported Respiratory: No symptoms reported Gastrointestinal: No symptoms reported Genitourinary: No symptoms reported Male Genitourinary: No symptoms reported Musculoskeletal: No symptoms reported Skin: No symptoms reported Hematologic/Lymphatic: No symptoms reported Neurological/Psychological: No symptoms reported Physical Exam - Vital signs Vitals: Temp Pulse Resp BP Pulse Ox 98.1 F 98 24 H 170/101 H 94 08/12/16 11:20 08/12/16 11:20 08/12/16 11:20 08/12/16 11:20 08/12/16 11:20 Interpretation: Normal - General General appearance: Appears well, Alert - HEENT Head: Normocephalic, Atraumatic Eyes: Normal Pupils: PERRL - Respiratory Respiratory status: No respiratory distress Chest status: Nontender Breath sounds: Normal Chest palpation: Normal - Cardiovascular Rhythm: Regular Heart sounds: Normal auscultation Murmur: No - Abdominal Inspection: Normal Distension: No distension Bowel sounds: Normal Tenderness: Nontender Organomegaly: No organomegaly - Back Back: Normal, Nontender - Extremities General upper extremity: Normal inspection, Nontender, Normal color, Normal ROM , Normal temperature General lower extremity: Normal inspection, Nontender, Normal color, Normal ROM , Normal temperature, Normal weight bearing. No: Patti's sign - Neurological Neuro grossly intact: Yes Cognition: Normal Orientation: AAOx4 Wali Coma Scale Eye Opening: Spontaneous [place] Coma Scale Verbal: Oriented [place] Coma Scale Motor: Obeys Commands Wali Coma Scale Total: 15 Speech: Normal Motor strength normal: LUE, RUE, LLE, RLE Sensory: Normal - Psychological Associated symptoms: Normal affect, Normal mood - Skin Skin Temperature: Warm Skin Moisture: Dry Skin Color: Normal Course - Re-evaluation Re-evalutation: 08/12/16 15:37 Lab work shows low potassium. Patient also has alcohol in his system. Patient does have elevation in his LFTs are more likely related to his alcoholism as the ultrasound is negative. Patient was encouraged to titrate his alcohol consumption patient will be discharged home - Vital Signs Vital signs: Temp Pulse Resp BP Pulse Ox 98.1 F 98 24 H 170/101 H 94 08/12/16 11:20 08/12/16 11:20 08/12/16 11:20 08/12/16 11:20 08/12/16 11:20 - Laboratory Result Diagrams: 08/12/16 11:55 08/12/16 11:55 Laboratory results interpreted by me: 08/12/16 08/12/16 08/12/16 11:55 11:55 11:55 MCV 101 H MCH 34.0 H RDW 16.2 H Potassium 3.3 L Chloride 91 L Anion Gap 20 H Total Bilirubin 2.0 H Direct Bilirubin 0.9 H AST 95 H ALT 115 H Creatine Kinase 35 L Urine Ketones 20 H Urine Urobilinogen 4.0 H Discharge - Discharge Clinical Impression: Weakness, alcohol consumption Condition: Good Disposition: HOME, SELF-CARE Instructions: Weakness ([facility]), Chronic Alcoholism ([facility]) Additional Instructions: Please follow-up with your doctor or the resources provided. Lab work today reveals no critical etiology. Your potassium was slightly low we did give the potassium here in the ER. I highly encourage you to slowly stop drinking alcohol. If you do not feel like eating I would highly recommend that you take at least one Ensure shake at every mealtime. Prescriptions: Lactose-Reduced Food [Ensure Active High Protein] 414 ml PO TID 14 Days Referrals: [facility] Crisis Team [Provider Group] - Follow up as needed
[2016-08-12 15:49] VITALS: BP 151/91
== END 2016-08-12 15:49 | disposition home or self-care (01) ==
LOC: ER 11:13
DX: R53.1 Weakness (principal); F41.9 Anxiety disorder, unspecified; I10 Essential (primary) hypertension; F10.129 Alcohol abuse with intoxication, unspecified; F17.200 Nicotine dependence, unspecified, uncomplicated
CPT/HCPCS: 93005; 99285; 36415; 82553; 80307; 82550; 85025; 80053; 81001; 84484; 71020; 76705; 93976; 93010; A9270